=== PATIENT | male | born 1935 | race Caucasian/White ===

== ENCOUNTER 2016-08-21 20:49 | Emergency (ER) | payer MEDICARE, BC ==
--- NOTE | ~2016-08-21 | CR126 ---
[facility] A Service of [facility] RADIOLOGY TEXT RESULTS PATIENT: SAMIA URIAS JR LOCATION: [facility] : 35 UNIT #: [id number] AGE: [address]: Cliff Ashley MD SEX: M ORDER DR: [id number] [facility] [address] [place], [place] [address] [id number] MR#: [id number] Acc #: [id number] NAME: SAMIA URIAS JR : 1935 SEX: M STUDY DATE/TIME: 08/21/2016 20:33 UNIT: [facility] ROOM: STUDY DESCRIPTION: CR Foot Complete Min 3 View Lt Attending Physician: Cliff Ashley M.D. Ordering Physician: Cliff Ashley M.D. Primary Care Physician: Manjula Preston M.D. MEDICAL IMAGING REPORT This report is preliminary unless electronic signature is present EXAM Left foot, 3 days. DATE OF EXAM 08/21/2016 HISTORY Foot pain for 2 days. No injury. FINDINGS 3 views left foot demonstrate satisfactory bone alignment. No fracture, joint space narrowing or dislocation. Very small posterior and plantar calcaneal spurs. IMPRESSION No acute findings. Dictated by... Skinny Nichols M.D. THIS IS AN ELECTRONICALLY VERIFIED REPORT Skinny Nichols M.D. at 08/21/2016 11:29 PM DFL/choco TD: 08/21/2016 22:47 JOB #: [id number] MEDICAL IMAGING REPORT Page 1 of 1 COPY
[~2016-08-21 20:49] MED LIST: ACETAMINOPHEN PO; ASPIRIN EC81 M1 PO; ASPIRIN PO; ASPIRIN81 M1 PO; ASPIRIN81 MG PO; ASPIRINEC PO; ATORVASTATIN CA80 MG PO; B COMPLEX/FOLIC1 TAB PO; B COMPLEX1 CA1 PO; B-121000 MC1 PO; CLOPIDOGREL75 MG PO; DARVOCET-N 1001 TA1 PO; ECOTRIN325 MG PO; ENALAPRIL MALEA10 MG PO; FISH OIL 1,0001 CAP PO; FISH OIL 1,001000 M1 PO; FISH OIL 1,2001 EAC2 PO; FISH OIL 1,21 CAP.EC PO; FISH OIL CONC1000 MG PO; FLEXERIL10 MG PO; FUROSEMIDE40 MG PO; GABAPENTIN300 M2 PO; GABAPENTIN300 MG PO; IMDUR PO; IMDUR-ER30 M1 PO; KETOPROFEN PO; LASIX PO; LASIX20 MG PO; LIORESAL10 MG PO; LISINOPRIL10 MG PO; LOPID600 MG PO; LOPRESSOR PO; LORTAB 5/500 TA1 TA1 PO; MAIL ORDER PHARMACY; MEDROL DOSEPAK4 MG DOB; MULTI VITAMIN1 EACH PO; MULTI-DAY VITAM1 TAB PO; MULTI-VITAMIN1 TAB PO; NEURONTIN PO; NEURONTIN300 MG PO; OMEPRAZOLE40 M1 PO; OMEPRAZOLE40 MG PO; OXYCODONE-APAP1 EACH PO; PANTOPRAZOLE SO40 MG PO; PERCOCET 5-3251 TAB PO; PLAVIX PO; PLAVIX300 MG PO; PRAVACHOL PO; PRILOSEC20 MG PO; PRILOSEC40 MG PO; PROTONIX PO; RENATABS WITH I1 TAB PO; SIMVASTATIN80 MG PO; TOPROL XL 50 MG50 MG PO; TOPROL XL PO; TOPROL XL50 MG PO; TYLOX 5-500 CA1 EACH PO; VASOTEC PO; VASOTEC10 MG PO; ZOCOR PO; ZOCOR80 MG PO
== END 2016-08-21 21:50 | disposition home or self-care (01) ==
LOC: CED 20:49
DX: M79.672 Pain in left foot (principal); I10 Essential (primary) hypertension; Z88.5 Allergy status to narcotic agent
CPT/HCPCS: 73630; 99283

== ENCOUNTER 2016-10-23 00:12 | Inpatient (IN) | payer MEDICARE, BC ==
--- NOTE | ~2016-10-23 | CO ---
Unit #: [id number] #: [id number] Patient: SAMIA URIAS JR [id number] [address] [place], [place] [address] [id number] I MR#: [id number] NAME: SAMIA URIAS JR ROOM: 217 Age: 80 Sex: M Admission Date: 10/24/2016 : 1935 Attending Physician: Fco Banerjee M.D. Primary Care Physician: Manjula Preston M.D. CONSULTATION REPORT CHIEF COMPLAINT Urinary retention. HISTORY OF PRESENT ILLNESS The patient is an 80-year-old male who recently underwent back surgery. He was [facility] to [facility] and developed urinary retention. He was started on Flomax and had an indwelling catheter. Per the patient, about one week ago the indwelling catheter was removed and he was taught clean, intermittent catheterization. He was having no difficulty with this but he stated that his urine began to appear to have more sediment and was milky in appearance. He was catheterizing without difficulty. He denies hematuria. He was not voiding in between catheterization any significant amount. PAST MEDICAL HISTORY 1. Hypertension. 2. Hyperlipidemia. 3. Coronary artery disease. 4. Obstructive sleep apnea. 5. BPH. PAST SURGICAL HISTORY 1. Back surgery. 2. Coronary artery bypass graft. 3. Cholecystectomy. 4. Hernia repair. SOCIAL HISTORY Distant smoking history. Negative for alcohol, negative for drug use. FAMILY HISTORY Noncontributory. REVIEW OF SYSTEMS Twelve point review of systems was performed and it was positive for weakness, positive for urinary retention. Negative for gross hematuria, negative for urinary incontinence. MEDICATIONS/ALLERGIES Documented in the chart and includes Flomax. PHYSICAL EXAMINATION GENERAL: Somewhat elderly white male in no acute distress. VITAL SIGNS: Temperature 98.0, blood pressure 122/56. Unit #: [id number] #: [id number] Patient: SAMIA URIAS JR HEENT: Normocephalic, atraumatic. Extraocular movements are intact. NECK: Supple without evidence of lymphadenopathy. RESPIRATIONS: Unlabored. There is symmetric chest rise. Regular rate and rhythm. ABDOMEN: Soft, nontender, nondistended. EXTREMITIES: No clubbing, cyanosis, or edema. EXAM: He has a Downing catheter in place, draining clear urine. NEUROLOGICAL: Grossly intact. He is moving all extremities well. He is alert and oriented x4. DIAGNOSTIC STUDIES LABORATORY: Significant for creatinine of 0.8. Urinalysis - leukocyte esterase positive, nitrite negative, innumerable white blood cells, 10-25 red bloods. ASSESSMENT AND PLAN 1. Urinary retention: He likely has an element of neurogenic bladder plus benign prostatic hypertrophy. We will stop his Flomax and start him on Rapaflo 8 mg daily. He will likely need to resume clean, intermittent catheterization in the future, possibly prophylactic antibiotics. If he has not had urodynamics, he will need that in the future as well. 2. Urinary tract infection: We will follow his urine culture. We will continue antibiotics. I appreciate the opportunity to participate in his care. Dictated by... Prateek Funes M.D. AMAYA/emmie TD: 10/25/2016 08:24 JOB #: [id number] CONSULTATION REPORT Page 1 of 1 X Prateek Funes MD X CONSULTATION REPORT
--- NOTE | ~2016-10-23 | EKG ---
PATIENT: SAMIA URIAS UNIT #: [id number] Ventricular Rate: 99 BPM Atrial Rate: 99 BPM P-R Interval: 182 ms QRS Duration: 120 ms Q-T Interval: 366 ms QTC Calculation(Bezet): 469 ms P [place]: 42 degrees Calculated R [place]: 7 degrees Calculated T [place]: 34 degrees Diagnosis Line: Normal sinus rhythm Diagnosis Line: Right bundle branch block Diagnosis Line: Abnormal ECG Diagnosis Line: Diagnosis Line: Confirmed by CURRY LENZ MD ([id number]) on Diagnosis Line: 10/23/2016 2:02:40 PM INTERPRETING MD: DELFIN SIN
--- NOTE | ~2016-10-23 | DS ---
Unit #: [id number] #: [id number] Patient: SAMIA URIAS JR [id number] [address] [place] [id number] I MR#: [id number] NAME: SAMIA URIAS JR ROOM: 217 Age: 80 Sex: M Admission Date: 10/24/2016 : 1935 Discharge Date: Attending Physician: Fco Banerjee M.D. Primary Care Physician: Manjula Preston M.D. DISCHARGE SUMMARY DISCHARGE DIAGNOSES 1. Urinary tract infection. 2. Benign prostatic hypertrophy. 3. Urinary retention. 4. Hypertension. HOSPITAL COURSE The patient is an 80-year-old gentleman who presents to [facility] from home secondary to weakness. He had been recently discharged from [facility] and had been doing well until two days prior to presentation. At that time he began feeling weak and the patient was ultimately prompted to present when he found himself unable to get into bed secondary to the weakness. In the ED the patient was noted to have a urinary tract infection buy urinalysis. The patient does have a history of BPH and urinary retention and is self-cathing at home. He had recently had his Downing catheter removed after having it for several weeks due to being unable to void. The patient was seen by Dr. Praetek Funes at the patient's request. Downing catheter was placed, after the patient attempted to void, and greater than 500 mL of urine returned. The patient's Flomax was changed to Rapaflo and the Downing remains. At this time urine cultures reveal a pansensitive E. coli. As a result, he is being discharged to rehab. DISCHARGE MEDICATIONS 1. Cyanocobalamin 1000 mcg p.o. daily. 2. Oxycodone and acetaminophen 5/325 one p.o. daily p.r.n. 3. Zantac 150 mg daily. 4. Neurontin 600 mg p.o. t.i.d. 5. Toprol-XL 500 mg p.o. daily. 6. Multivitamin daily. 7. Nitroglycerin p.r.n. 8. Fish oil daily. 9. Lipitor 80 mg p.o. daily. 10. Plavix 75 mg p.o. daily. 11. Lasix 20 mg p.o. daily. 12. Norvasc 40 mg daily. 13. Rapaflo 8 mg daily. 14. Aspirin 81 mg daily. FOLLOWUP Patient should follow up with Dr. Funes upon discharge from rehab. Unit #: [id number] #: [id number] Patient: SAMIA URIAS JR Dictated by... Alanis Jose/anni TD: 10/25/2016 15:26 JOB #: [id number] DISCHARGE SUMMARY Page 1 of 1 X Fco Banerjee MD X DISCHARGE SUMMARY
--- NOTE | ~2016-10-23 | CR72 ---
[facility] A Service of [facility] RADIOLOGY TEXT RESULTS PATIENT: SAMIA URIAS JR LOCATION: [place] [address] : 35 UNIT #: [id number] AGE: [address]: Fco Banerjee MD SEX: M ORDER DR: [id number] [facility] [address] [place], [place] [address] [id number] I MR#: [id number] Acc #: [id number] NAME: SAMIA URIAS JR : 1935 SEX: M STUDY DATE/TIME: 10/23/2016 2:50 [facility] 00049 STUDY DESCRIPTION: CR Chest Single View Portable Attending Physician: Fco Banerjee M.D. Ordering Physician: Liam Calvo D.O. Primary Care Physician: Manjula Preston M.D. MEDICAL IMAGING REPORT This report is preliminary unless electronic signature is present EXAM Portable chest INDICATION Weakness and shortness of air today. PROCEDURE Frontal view chest COMPARISON 09/09/2015 FINDINGS Heart size is unchanged. No new dense opacity. No pleural fluid or pneumothorax. IMPRESSION No active process. Dictated by... Nicolas Garcia M.D. THIS IS AN ELECTRONICALLY VERIFIED REPORT Nicolas Garcia M.D. at 10/23/2016 10:10 PM Shiva TD: 10/23/2016 09:46 JOB #: [id number] MEDICAL IMAGING REPORT Page 1 of 1 COPY
--- NOTE | ~2016-10-23 | HP ---
Unit #: [id number] #: [id number] Patient: SAMIA URIAS JR [id number] [address] [address] [id number] I MR#: [id number] NAME: SAMIA URIAS JR ROOM: 217 Age: 80 Sex: M Admission Date: 10/23/2016 : 1935 Attending Physician: Fco Banerjee M.D. Primary Care Physician: Manjula Preston M.D. HISTORY AND PHYSICAL CHIEF COMPLAINT Weakness. HISTORY OF PRESENT ILLNESS The patient is an 80-year-old gentleman who presented from home secondary to weakness. He had recently been discharged from [facility] and had been doing very well at home. He states that on Friday, two days prior to admission, he began to feel diffusely weak. He states that on the evening of admission he was too weak to get into the bed and found himself stuck, such that he was half on and half off his bed. His was unable to help him and EMS was summoned. In the emergency department the patient states that the weakness is largely in his legs. It is not associated with any pain. He denies fevers, nausea, vomiting and chills. PAST MEDICAL HISTORY 1. Hypertension. 2. Hyperlipidemia. 3. Coronary artery disease, status post coronary artery bypass grafting. 4. Obstructive sleep apnea with CPAP compliance. 5. BPH. PAST SURGICAL HISTORY 1. Coronary artery bypass grafting. 2. Cholecystectomy. 3. Hernia repair. 4. Recent back surgery. SOCIAL HISTORY The patient stopped smoking 50 years ago. He denies alcohol and illicit drug use. FAMILY HISTORY Reviewed and noncontributory in this 80-year-old male. ALLERGIES No known drug allergies. HOME MEDICATIONS 1. Cyanocobalamin. 2. Oxycodone/acetaminophen 5/325 mg 1 p.o. daily p.r.n. 3. Zantac 150 mg daily. 4. Neurontin 600 mg p.o. t.i.d. Unit #: [id number] #: [id number] Patient: SAMIA URIAS JR 5. Toprol XL 50 mg daily. 6. Multivitamin daily. 7. Nitroglycerin p.r.n. 8. Fish oil daily. 9. Lipitor 80 mg daily. 10. Baclofen 10 mg at bedtime. 11. Plavix 75 mg p.o. daily. 12. Lasix 20 mg p.o. daily. 13. Norvasc 10 mg p.o. daily. 14. Flomax 0.4 mg at bedtime. 15. Aspirin 81 mg daily. REVIEW OF SYSTEMS Ten point review of systems obtained and negative except as per history of present illness. PHYSICAL EXAMINATION GENERAL: The patient is an 80-year-old male in no acute distress, who appears his stated age. VITALS: Pulse 108, blood pressure 141/69. HEENT: Pupils equally round. Extraocular movements intact. Mucous membranes dry. NECK: Supple. No jugular venous distension. No lymphadenopathy. LUNGS: Clear to auscultation bilaterally. HEART: Regular rate and rhythm. No murmurs, gallops or rubs. ABDOMEN: Nontender and nondistended. Positive bowel sounds. EXTREMITIES: No clubbing, cyanosis or edema. They are warm and dry. PSYCHIATRIC: Alert and oriented times three. Affect is appropriate. NEUROLOGIC: Cranial nerves II through XII intact grossly. The patient moves all extremities equally and with purpose. SKIN: No rashes, bruises or ulcers. MUSCULOSKELETAL: No muscular or joint pain. No muscular or joint swelling. DIAGNOSTIC STUDIES IMAGING: Chest x-ray shows no active disease. LABORATORY: Glucose 130, creatinine 1.1, sodium 134, albumin 3.2, lactic acid 1.1, hemoglobin 12.6. Urinalysis shows 3+ leukocyte esterase, 3+ blood, 10-25 red cells, innumerable whites and 4+ bacteria. ASSESSMENT/PLAN 1. Urinary tract infection. The patient states that he has had some recent problems with BPH and had an indwelling Downing. The Downing has been out for several week, but he has been self-catheterizing. Based on urinalysis, my feeling is that the patient has a urinary tract infection and has been started on IV antibiotics. 2. BPH. I resumed the patient's home Flomax. 3. Weakness. Physical therapy and occupational therapy will evaluate. It is likely secondary to the patient's urinary tract infection. Could also be secondary to taking his baclofen at night, which I will discontinue. 4. Prophylaxis. The patient will be started on Lovenox. Dictated by Fco Banerjee M.D. Unit #: [id number] #: [id number] Patient: SAMIA URIAS JR [place] CAM/gz TD: 10/24/2016 11:42 JOB #: [id number] HISTORY AND PHYSICAL Page 1 of 1 X Fco Banerjee MD X HISTORY AND PHYSICAL
[2016-10-23 04:15] LABS: BASOPHIL% 0.3 % (0-2.5); HEMATOCRIT 37.3 % (38.0-50.0); HEMOGLOBIN 12.6 gm/dL (13.0-16.0); LYMPHOCYTE# 0.9 X10e3 (1.0-3.5); LYMPHOCYTE% 12.4 % (17.0-45.0); MEAN CELL VOLUME 98.9 FL (83-96); MEAN CORPUSCULAR HEMOGLOBIN 33.4 PG (28-34); MEAN CORPUSCULAR HGB CONC 33.7 g/dL (30-36); MEAN PLATELET VOLUME 7.8 FL (6.5-11.5); MONOCYTE# 0.8 X10e3 (0-1.0); NEUTROPHIL# 5.6 X10e3 (1.5-7.1); NEUTROPHIL% 76.3 % (40-75); PLATELET COUNT 151 X10e3 (140-420); RED BLOOD COUNT 3.77 X10e (3.90-5.60); RED CELL DISTRIBUTION WIDTH 13.8 % (11.0-15.5); WHITE BLOOD COUNT 7.3 X10e3 (4.0-10.5)
[2016-10-23 04:17] LABS: DIFF IND NO
[2016-10-23 04:25] LABS: INR 1.2; PARTIAL THROMBOPLASTIN TIME 33.3 SECONDS (23.5-31.3); PROTHROMBIN TIME (PATIENT) 13.2 SECONDS (9.6-11.5)
[2016-10-23 04:32] LABS: ALBUMIN SERUM 3.2 g/dL (3.5-5.0); BILIRUBIN, DIRECT 0.4 mg/dL (0.0-0.2); BILIRUBIN,INDIRECT 0.8 mg/dL (0.0-0.9); BILIRUBIN,TOTAL 1.2 mg/dL (0.2-2.0); BUN/CREATININE RATIO 26.36; CALCIUM SERUM 8.8 mg/dL (8.4-10.2); CREATININE SERUM 1.1 mg/dL (0.6-1.4); GLOM FILT RATE Estimated 63.1 mL/min (>60); POTASSIUM 3.7 mmol/L (3.5-5.1); PROTEIN TOTAL SERUM 6.8 g/dL (6.0-8.3)
[2016-10-23 04:41] LABS: POC - CKMB 1.2 ng/mL (0.0-7.9); POC - TROPONIN <0.05 ng/mL (<=0.05)
[2016-10-23 05:50] LABS: URINE APPEARANCE CLOUDY; URINE BILIRUBIN NEG (NEG); URINE BLOOD 3+ (NEG); URINE COLOR DK YELLOW; URINE GLUCOSE NEG (NEG); URINE KETONE TRACE (NEG); URINE LEUKOCYTE ESTERASE 3+ (NEG); URINE NITRATE NEG (NEG); URINE PH 5.5 (5-8); URINE PROTEIN 1+ (NEG); URINE SPECIFIC GRAVITY 1.018 (1.003-1.035)
[2016-10-23 05:58] LABS: CULTURE INDICATED? YES; URINE BACTERIA AUWI 4+ (NEGATIVE); URINE SOURCE CATH; URINE SQUAMOUS EPITHELIAL CELL OCC /[HPF]; UWBCS1 AUWI INNUM (0-5)
[2016-10-23 06:19] LABS: POC - CKMB <1.0 ng/mL (0.0-7.9); POC - TROPONIN <0.05 ng/mL (<=0.05)
[2016-10-23] MEDS ORDERED: ASPIRIN81 M2 PO (09:38)
[2016-10-23] MEDS ORDERED: NORVASC10 MG PO (09:38)
[2016-10-23] MEDS ORDERED: FLOMAX0.4 M1 PO (09:38)
[2016-10-23] MEDS ORDERED: CLOPIDOGREL75 MG PO (09:39)
[2016-10-23] MEDS ORDERED: LIPITOR80 MG PO (09:39)
[2016-10-23] MEDS ORDERED: LIORESAL10 MG PO (09:39)
[2016-10-23] MEDS ORDERED: LASIX20 MG PO (09:39)
[2016-10-23] MEDS ORDERED: NITROSTAT0.4 MG PO (09:40)
[2016-10-23] MEDS ORDERED: TOPROL XL50 MG PO (09:40)
[2016-10-23] MEDS ORDERED: NEURONTIN300 MG PO (09:40)
[2016-10-23] MEDS ORDERED: OMEGA 3 1,0001 EACH PO (09:40)
[2016-10-23] MEDS ORDERED: MULTIVITAMINS1 EAC3 PO (09:40)
[2016-10-23] MEDS ORDERED: ENDOCET 5-3251 EACH PO (09:41)
[2016-10-23] MEDS ORDERED: ZANTAC150 MG PO (09:41)
[2016-10-23] MEDS ORDERED: CYANOCOBALAMI100 MCG PO (09:42)
[2016-10-24 12:17] LABS: BASOPHIL% 0.2 % (0-2.5); EOSINOPHIL# 0.1 X10e3 (0-0.7); EOSINOPHIL% 1.1 % (0.0-7.0); HEMATOCRIT 34.4 % (38.0-50.0); HEMOGLOBIN 11.6 gm/dL (13.0-16.0); LYMPHOCYTE# 0.9 X10e3 (1.0-3.5); LYMPHOCYTE% 16.5 % (17.0-45.0); MEAN CELL VOLUME 98.8 FL (83-96); MEAN CORPUSCULAR HEMOGLOBIN 33.2 PG (28-34); MEAN CORPUSCULAR HGB CONC 33.6 g/dL (30-36); MEAN PLATELET VOLUME 7.9 FL (6.5-11.5); MONOCYTE# 0.9 X10e3 (0-1.0); MONOCYTE% 16.1 % (3.0-12.0); NEUTROPHIL# 3.6 X10e3 (1.5-7.1); NEUTROPHIL% 66.1 % (40-75); PLATELET COUNT 122 X10e3 (140-420); RED BLOOD COUNT 3.49 X10e (3.90-5.60); RED CELL DISTRIBUTION WIDTH 13.8 % (11.0-15.5); WHITE BLOOD COUNT 5.5 X10e3 (4.0-10.5)
[2016-10-24 12:19] LABS: DIFF IND NO
[2016-10-24 12:41] LABS: CALCIUM SERUM 8.1 mg/dL (8.4-10.2); POTASSIUM 3.4 mmol/L (3.5-5.1)
[2016-10-24 12:50] LABS: CREATININE SERUM 0.8 mg/dL (0.6-1.4); GLOM FILT RATE Estimated 84.4 mL/min (>60)
== END 2016-10-25 16:52 | DRG 690 ==
LOC: CED 00:12 → CEDOF 06:22 → C2A 07:25 → CEDOF 07:25 → C2A 07:25 → CED 07:25 → C2A 12:57 → CEDOF 12:57 → C2A 10-24 11:16
PROVIDERS: Emergency Medicine; Internal Medicine
DX: N39.0 Urinary tract infection, site not specified (principal); Z95.1 Presence of aortocoronary bypass graft; N31.9 Neuromuscular dysfunction of bladder, unspecified; N40.1 Benign prostatic hyperplasia with lower urinary tract symptoms; R33.8 Other retention of urine; B96.20 Unspecified Escherichia coli [E. coli] as the cause of diseases classified elsewhere; I10 Essential (primary) hypertension; G47.33 Obstructive sleep apnea (adult) (pediatric); E78.5 Hyperlipidemia, unspecified; R53.1 Weakness; Z87.891 Personal history of nicotine dependence; Z90.49 Acquired absence of other specified parts of digestive tract
CPT/HCPCS: 36415; 51701; 71010; 80048; 80076; 81003; 82553; 82947; 83605; 84484; 85025; 85610; 85730; 87040; 87086; 87186; 93005; 94760; 97110; 97116; 97162; 97165; 97530; 97535; 99285; G8978-GP; G8979-GP; G8987-GO; G8988-GO; J0696; J1650